=== PATIENT | female | born 1950 | race Caucasian/White ===

== ENCOUNTER 2019-06-29 11:41 | Emergency (ER) | payer MEDICARE ==
[2019-06-29 12:03] VITALS: BP 147/72; PULSE 69
--- NOTE | 2019-06-29 12:03 | EDM.PDOC ---
ED HPI GENERAL MEDICAL PROBLEM - General Chief Complaint: General Stated Complaint: right ankle injury Time Seen by Provider: 06/29/19 11:55 Source of Information: Reports: Patient, RN History Limitations: Reports: No Limitations - History of Present Illness INITIAL COMMENTS - FREE TEXT/NARRATIVE: 68 yr female presents with injury at home to right ankle, swelling, pain, and pain to right lower leg. Injury happened a few days ago, states hx of osteoporosis and stress fracture. Hx CLL, hypertesnion controlled with medication. She has been using heat and an aircast to the right ankle. She is ambulatory with a limp Right Ankle Pain Score (Numeric/FACES): 5 - Related Data Allergies Allergy/AdvReac Type Severity Reaction Status Date / Time shellfish derived Allergy Hives Verified 02/13/15 12:31 Home Meds: Home Meds Multivitamin [Multivitamins] 1 each PO DAILY 10/13/16 [History] Valsartan 40 mg PO DAILY 06/29/19 [History] Past Medical History Musculoskeletal History: Reports: Osteoporosis Oncologic (Cancer) History: Reports: Other (See Below) Other Oncologic History: chronic lymphatic leukemia - Past Surgical History HEENT Surgical History: Reports: Tonsillectomy Social & Family History - Family History Family Medical History: Noncontributory ED ROS GENERAL - Review of Systems Review Of Systems: See Below Constitutional: Reports: No Symptoms Musculoskeletal: Reports: Other (right ankle injury, pain, swelling, bruising and right lower leg pain, limp with walking) Skin: Reports: Other (skin tear right ankle) Neurological: Reports: No Symptoms ED EXAM, GENERAL - Physical Exam Exam: See Below Extremities: Normal Capillary Refill, Other (swelling to right lateral malleolus of ankle and bruising noted.) Neurological: Alert, Oriented, Normal Cognition Course - Vital Signs Last Recorded V/S: Last Vital Signs Temp 97.3 F 06/29/19 11:54 Pulse 69 06/29/19 11:54 Resp 18 06/29/19 11:54 BP 147/72 H 06/29/19 11:54 Pulse Ox 98 06/29/19 11:54 - Orders/Labs/Meds Orders: Active Orders 24 hr Category Date Time Status Ankle Min 3V Rt [CR] Stat Exams 06/29/19 11:59 Taken - Re-Assessments/Exams Free Text/Narrative Re-Assessment/Exam: 06/29/19 12:10 Review of x-ray and no acute, displaced fracture, no dislocation noted. Reviewed results with pt. contusion of ankle Recommend rest the ankle, use of air cast to ankle, ice/heat to area and Tylenol as needed. Elevate area prn. Take it easy for 10 days to 2 weeks and then slowly increase activity as tolerated. RTC if pain persists or worsens. Departure - Departure Time of Disposition: 12:30 Disposition: Home, Self-Care 01 Condition: Good Clinical Impression: Contusion of right ankle - Discharge Information *PRESCRIPTION DRUG MONITORING PROGRAM REVIEWED*: Not Applicable *COPY OF PRESCRIPTION DRUG MONITORING REPORT IN PATIENT KRISSY: Not Applicable Instructions: RICE Therapy for Routine Care of Injuries, [id number], Contusion, [id number] Referrals: PCP,None [Primary Care Provider] - Forms: ED Department Discharge Additional Instructions: Discharge home. No fracture noted on initial x-ray. Will notify you of final report. Use the air splint for 10-14 days. Avoid walking or applying pressure to right ankle for 2 weeks. At 2 weeks you can start to advance walking. Follow up as need and return to the clinic or ER if you have any questions or concerns. - My Orders Last 24 Hours: My Active Orders 06/29/19 11:59 Ankle Min 3V Rt [CR] Stat - Assessment/Plan Last 24 Hours: My Active Orders 06/29/19 11:59 Ankle Min 3V Rt [CR] Stat Plan: contusion of ankle Recommend rest the ankle, use of air cast to ankle, ice/heat to area and Tylenol as needed. Elevate area prn. Take it easy for 10 days to 2 weeks and then slowly increase activity as tolerated. RTC if pain persists or worsens.
--- NOTE | 2019-06-29 16:54 | CR ---
Date of Service: 06/29/19 Clinical Data: injury, pain, swelling RIGHT ANKLE: No priors. There is soft tissue swelling over the lateral malleolus. There is diffuse osteopenia. No acute fracture or dislocation. No lytic or blastic bone lesions. There are vascular calcifications in the soft tissues. [id number] [facility]
== END 2019-06-29 12:30 | disposition home or self-care (01) ==
LOC: LB.ED 11:41
DX: S90.01XA Contusion of right ankle, initial encounter (principal); Z91.013 Allergy to seafood; Z98.890 Other specified postprocedural states; X58.XXXA Exposure to other specified factors, initial encounter
CPT/HCPCS: 73610-RT; 99283-25